=== PATIENT | male | born 1995 | race Caucasian/White ===

== ENCOUNTER 2019-11-10 22:07 | Emergency (ER) | payer SELFPAY ==
--- OUTSIDE RECORDS SUMMARY | 2019-11-10 22:10 | XMS REPORT | Continuity of Care Document ---
:1995 Author Organization [facility] t Address [facility] [place] [id number] Care Team Providers Name Role Phone Unavailable Unavailable Unavailable Problems This patient has no known problems. Allergies, Adverse Reactions, Alerts This patient has no known allergies or adverse reactions. Medications This patient has no known medications. Procedures This patient has no known procedures. Results This patient has no known results.
[2019-11-10 23:16] LABS: Urine Blood NEGATIVE (NEG); Urine Glucose NEGATIVE (NEG); Urine Protein 1+ (NEG); Urine Specific Gravity 1.025 (1.005-1.030)
[2019-11-10] MEDS ORDERED: NA CHLORIDE 0.9% 1,000 ML ONE (23:16)
[2019-11-10 23:17] LABS: Absolute Lymphocytes (CBC) 2.5 K/uL (0.7-4.9); Basophils % 0.7 % (0-1.3); Hematocrit 43.5 % (39.6-49.0); Lymphocytes % 16.3 % (15.3-44.8); MPV 9.8 fL (7.6-11.3); RBC Red Blood Cell Count 4.84 M/uL (4.33-5.43)
[2019-11-10 23:31] LABS: Barbiturates NEGATIVE (NEGATIVE); Benzodiazepines NEGATIVE (NEGATIVE); Cocaine NEGATIVE (NEGATIVE); METHAMPHETAM NEGATIVE (NEGATIVE); Methadone NEGATIVE (NEGATIVE); Opiates NEGATIVE (NEGATIVE); Phencyclidine NEGATIVE (NEGATIVE); THC Cannibis POSITIVE (NEGATIVE)
[2019-11-10 23:38] LABS: Protime INR 1.05
[2019-11-10 23:39] LABS: ALT/SGPT 27 U/L (12-78); AST/SGOT 18 U/L (15-37); Albumin 3.9 g/dL (3.4-5.0); Alkaline Phosphatase 107 U/L (45-117); BUN Blood Urea Nitrogen 12 mg/dL (7-18); Bicarbonate 26 mmol/L (21-32); Bilirubin Direct < 0.1 mg/dL (0-0.2); Bilirubin Total 0.3 mg/dL (0.2-1.0); Glucose Level 85 mg/dL (74-106); Potassium 3.5 mmol/L (3.5-5.1); Protein, Total 8.5 g/dL (6.4-8.2); Sodium Level 140 mmol/L (136-145)
--- NOTE | 2019-11-11 00:55 | ER ---
Nurse's Notes [facility] Name: Lobo Olson Age: 24 yrs Sex: Male : 1995 Arrival Date: 11/10/2019 Time: 22:08 Bed 19 Private MD: Diagnosis: Poisoning by 4-Aminophenol derivatives, undetermined Presentation: 11/09 22:24 Chief complaint: Patient states: I took tylenol 500mg tablet 7-10 tablet and rr5 co-amoxiclav 3 tablet around 1-2pm today. start feeling bad after an hour later having abdominal cramps. I bought charcoal pill took five of them then I vomited took another pill. denies commits suicide or hurting other. I took the tylenol because my head is hurting and for the antibiotic because I have spider bites just to prevent infection. Coronavirus screen: Client denies travel out of the [place] in the last 14 days. At this time, the client does not indicate any symptoms associated with coronavirus-19. Ebola Screen: Patient negative for fever greater than or equal to 101.5 degrees Fahrenheit, and additional compatible Ebola Virus Disease symptoms Patient denies exposure to infectious person. Patient denies travel to an Ebola-affected area in the 21 days before illness onset. Initial Sepsis Screen: Does the patient meet any 2 criteria? No. Patient's initial sepsis screen is negative. Does the patient have a suspected source of infection? No. Patient's initial sepsis screen is negative. Risk Assessment: Do you want to hurt yourself or someone else? Patient reports no desire to harm self or others. Onset of symptoms was November 10, 2019 at 13:00. Care prior to arrival: Medication(s) given: charcoal. 22:24 Method Of Arrival: Ambulatory rr5 22:24 Acuity: DADA 3 rr5 Historical: - Allergies: 22:29 No Known Allergies; rr5 - Home Meds: 22:29 None [Active]; rr5 - PMHx: 22:29 None; rr5 - PSHx: 22:29 None; rr5 - Immunization history:: Adult Immunizations unknown. - Social history:: Smoking status: Patient reports the use of cigarette tobacco products, smokes one pack cigarettes per day. Patient uses alcohol, occasionally. Patient/guardian denies using street drugs. Screenin:30 Abuse screen: Denies threats or abuse. Denies injuries from another. Nutritional rr5 screening: No deficits noted. Tuberculosis screening: No symptoms or risk factors identified. 22:30 Fall Risk IV access (20 points). Total Zacarias Fall Scale indicates No Risk (0-24 pts). rr5 Assessment: 22:30 General: Appears in no apparent distress. comfortable, Behavior is calm, cooperative, rr5 appropriate for age. Pain: Complains of pain in right upper quadrant Pain does not radiate. Pain currently is 2 out of 10 on a pain scale. Quality of pain is described as aching, Pain began gradually, Is intermittent. Neuro: Level of Consciousness is awake, alert, obeys commands, Oriented to person, place, time, situation. Cardiovascular: Capillary refill < 3 seconds Patient's skin is warm and dry. Respiratory: Airway is patent Respiratory effort is even, unlabored, Respiratory pattern is regular, symmetrical. GI: Reports upper abdominal pain, nausea, vomiting. : No signs and/or symptoms were reported regarding the genitourinary system. EENT: No signs and/or symptoms were reported regarding the EENT system. Derm: Skin is intact, is healthy with good turgor, Skin temperature is warm. Musculoskeletal: Circulation, motion, and sensation intact. Capillary refill < 3 seconds. 23:23 Reassessment: call made to poison control Shaista Palomares she said to get Tylenol level, rr5 increase fluid intake and educate the patient he might experience diarrhea. case # [id number]. 23:59 Reassessment: spoke to [facility] control she said shaista will call me back, informed rr5 for the acetaminophen level. 11/10 00:15 Reassessment: spoke to shaista from poison control with order to do the tylenol level now rr5 and will see the result. 01:00 Reassessment: spoke to meghan from poison control with order to start the rr5 acetylcysteine IV treatment. 01:20 Reassessment: Patient appears in no apparent distress at this time. Patient is alert, rr5 oriented x 3, equal unlabored respirations, skin warm/dry/pink. patient wants to leave and does not want to stay. Explained the AMA procedure and agreed. 01:30 Reassessment: Patient appears in no apparent distress at this time. Patient is alert, rr5 oriented x 3, equal unlabored respirations, skin warm/dry/pink. ED provider spoke to patient and explained the situation still opted to go. AMA form signed. 01:30 Reassessment: Provider explaining to pt the risk of going home. Pt verbalized jb4 understanding, continues to verbalize wish to leave AMA. Explained with the provider present that symptoms could worsen into liver failure ultimately progressing to irreversible liver damage and eventually . Provider informed patient that if treatment is continued, the Acetaminophen toxicity is completely reversible, Pt states " Thank you, but I think I am fine. I will take my chances." Instructed pt to avoid alcohol and any medication containing Tylenol/ Acetaminophen. PT signed AMA form and left ED with steady gait. Vital Signs: 11/09 22:24 BP 142 / 99; Pulse 72; Resp 16; Temp 98.6; Pulse Ox 99% ; Weight 71.67 kg; Height 5 ft. rr5 9 in. (175.26 cm); Pain 2/10; 23:30 BP 133 / 89; Pulse 79; Resp 16; Pulse Ox 98% ; rr5 11/10 00:30 BP 136 / 89; Pulse 80; Resp 16; Pulse Ox 100% ; rr5 01:30 BP 125 / 75; Pulse 70; Resp 19; Pulse Ox 99% ; rr5 11/09 22:24 Body Mass Index 23.33 (71.67 kg, 175.26 cm) rr5 ED Course: 11/09 22:08 Patient arrived in ED. am2 22:11 Osmel Garcia, RN is Primary Nurse. rr5 22:29 Triage completed. rr5 22:30 Arm band placed on right wrist. rr5 22:32 Benji Montoya MD is Attending Physician. jayla 22:35 Patient has correct armband on for positive identification. Bed in low position. Call rr5 light in reach. Pulse ox on. NIBP on. 22:50 Inserted saline lock: 20 gauge in right forearm, using aseptic technique. ,using rr5 aseptic technique. inserted by [facility] Blood collected. 11/10 01:43 Milan Doshi MD is Referral Physician. jayla 01:50 No provider procedures requiring assistance completed. IV discontinued, intact, rr5 bleeding controlled, No redness/swelling at site. Pressure dressing applied. Administered Medications: 11/09 23:15 Drug: NS 0.9% 1000 ml Route: IV; Rate: 1 bolus; Site: right forearm; rr5 11/10 00:10 Follow up: Response: No adverse reaction; IV Status: Completed infusion; IV Intake: rr5 1000ml Intake: 00:10 IV: 1000ml; Total: 1000ml. rr5 Outcome: 00:54 Discharge ordered by MD. dickerson 01:50 AMA AMA form signed rr5 01:50 Condition: stable 01:50 Instructed on the need for admit. 01:59 Patient left the ED. rr5 Signatures: Benji Montoya MD MD cha Bryson, James, RN RN jb4 Farrah Castillo am2 Osmel Garcia, RN RN rr5 Corrections: (The following items were deleted from the chart) 11/09 23:55 23:23 Reassessment: call made to poison control Shaista Palomares she said to get Tylenol rr5 level, increase fluid intake and educate the patient he might experience diarrhea. rr5
--- NOTE | 2019-11-11 00:55 | EDPHYS ---
Physician Documentation [facility] Name: Lobo Olson Age: 24 yrs Sex: Male : 1995 Arrival Date: 11/10/2019 Time: 22:08 Bed 19 Private MD: ED Physician Benji Montoya HPI: 11/09 22:58 This 24 yrs old Male presents to ER via Ambulatory with complaints of jayla ingestion of tylenol/amoxicillin. 22:58 not suicidal , took 7 x 500mg at 1 pm. Onset: The symptoms/episode began/occurred 10 jayla hour(s) ago. Severity of symptoms: At their worst the symptoms were very mild in the emergency department the symptoms are unchanged. The patient has not experienced similar symptoms in the past. Historical: - Allergies: 22:29 No Known Allergies; rr5 - Home Meds: 22:29 None [Active]; rr5 - PMHx: 22:29 None; rr5 - PSHx: 22:29 None; rr5 - Immunization history:: Adult Immunizations unknown. - Social history:: Smoking status: Patient reports the use of cigarette tobacco products, smokes one pack cigarettes per day. Patient uses alcohol, occasionally. Patient/guardian denies using street drugs. ROS: 22:59 Constitutional: Negative for fever, chills, and weight loss, Eyes: Negative for injury, jayla pain, redness, and discharge, ENT: Negative for injury, pain, and discharge, Neck: Negative for injury, pain, and swelling, Cardiovascular: Negative for chest pain, palpitations, and edema, Respiratory: Negative for shortness of breath, cough, wheezing, and pleuritic chest pain, Back: Negative for injury and pain, : Negative for injury, bleeding, discharge, and swelling, MS/Extremity: Negative for injury and deformity, Skin: Negative for injury, rash, and discoloration, Neuro: Negative for headache, weakness, numbness, tingling, and seizure, Psych: Negative for depression, anxiety, suicide ideation, homicidal ideation, and hallucinations, Allergy/Immunology: Negative for hives, rash, and allergies, Endocrine: Negative for neck swelling, polydipsia, polyuria, polyphagia, and marked weight changes, Hematologic/Lymphatic: Negative for swollen nodes, abnormal bleeding, and unusual bruising. 22:59 Abdomen/GI: Positive for nausea and vomiting. Exam: 22:59 Constitutional: This is a well developed, well nourished patient who is awake, alert, jayla and in no acute distress. Head/Face: Normocephalic, atraumatic. Eyes: Pupils equal round and reactive to light, extra-ocular motions intact. Lids and lashes normal. Conjunctiva and sclera are non-icteric and not injected. Cornea within normal limits. Periorbital areas with no swelling, redness, or edema. ENT: Nares patent. No nasal discharge, no septal abnormalities noted. Tympanic membranes are normal and external auditory canals are clear. Oropharynx with no redness, swelling, or masses, exudates, or evidence of obstruction, uvula midline. Mucous membranes moist. Neck: Trachea midline, no thyromegaly or masses palpated, and no cervical lymphadenopathy. Supple, full range of motion without nuchal rigidity, or vertebral point tenderness. No Meningismus. Chest/axilla: Normal chest wall appearance and motion. Nontender with no deformity. No lesions are appreciated. Cardiovascular: Regular rate and rhythm with a normal S1 and S2. No gallops, murmurs, or rubs. Normal PMI, no JVD. No pulse deficits. Respiratory: Lungs have equal breath sounds bilaterally, clear to auscultation and percussion. No rales, rhonchi or wheezes noted. No increased work of breathing, no retractions or nasal flaring. Back: No spinal tenderness. No costovertebral tenderness. Full range of motion. Male : Normal genitalia with no discharge or lesions. Skin: Warm, dry with normal turgor. Normal color with no rashes, no lesions, and no evidence of cellulitis. MS/ Extremity: Pulses equal, no cyanosis. Neurovascular intact. Full, normal range of motion. Neuro: Awake and alert, GCS 15, oriented to person, place, time, and situation. Cranial nerves II-XII grossly intact. Motor strength 5/5 in all extremities. Sensory grossly intact. Cerebellar exam normal. Normal gait. Psych: Awake, alert, with orientation to person, place and time. Behavior, mood, and affect are within normal limits. 22:59 Abdomen/GI: Inspection: abdomen appears normal. 23:20 ECG was reviewed by the Attending Physician. [facility] Vital Signs: 22:24 BP 142 / 99; Pulse 72; Resp 16; Temp 98.6; Pulse Ox 99% ; Weight 71.67 kg; Height 5 ft. rr5 9 in. (175.26 cm); Pain 2/10; 23:30 BP 133 / 89; Pulse 79; Resp 16; Pulse Ox 98% ; rr5 11/10 00:30 BP 136 / 89; Pulse 80; Resp 16; Pulse Ox 100% ; rr5 01:30 BP 125 / 75; Pulse 70; Resp 19; Pulse Ox 99% ; rr5 11/09 22:24 Body Mass Index 23.33 (71.67 kg, 175.26 cm) rr5 MDM: 11/09 22:32 Patient medically screened. [facility] 23:00 Differential diagnosis: Nonspecific abd pain, gastritis, viral gastroenteritis, jayla gastroenteritis. Data reviewed: vital signs, nurses notes, lab test result(s), EKG. 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 rate is 72 beats/min, rhythm is regular, Pulse oximetry: on room air is 99 %. Test interpretation: by ED physician or midlevel provider: ECG. 11/10 01:46 ED course: discussed at length about tylenol toxicity, pt refuses to stay despite [facility] findings of acute toxicity, still wants to sign out, will take his chances. 11/09 22:33 Order name: Acetaminophen; Complete Time: 23:44 [facility] 11/09 22:33 Order name: Basic Metabolic Panel; Complete Time: 23:44 [facility] 11/09 22:33 Order name: CBC with Diff; Complete Time: 23:28 [facility] 11/09 22:33 Order name: ETOH Level; Complete Time: 23:44 [facility] 11/09 22:33 Order name: Hepatic Function; Complete Time: 23:44 [facility] 11/09 22:33 Order name: PT-INR; Complete Time: 23:44 [facility] 11/09 22:33 Order name: Ptt, Activated; Complete Time: 23:44 [facility] 11/09 22:33 Order name: Salicylate; Complete Time: 23:44 [facility] 11/09 22:33 Order name: Urine Drug Screen; Complete Time: 23:44 [facility] 11/09 22:33 Order name: EKG; Complete Time: 22:34 [facility] 11/09 22:33 Order name: EKG - Nurse/Tech; Complete Time: 23:22 [facility] 11/09 23:10 Order name: Urine Dipstick--Ancillary (enter results); Complete Time: 23:22 2 11/09 23:46 Order name: Tylenol Level: at 1 am; Complete Time: 00:56 [facility] 11/09 22:33 Order name: IV Saline Lock; Complete Time: 23:22 [facility] 11/09 22:33 Order name: Labs collected and sent; Complete Time: 23:22 [facility] 11/09 22:33 Order name: Urine Dipstick-Ancillary (obtain specimen); Complete Time: 23:22 [facility] 11/09 22:33 Order name: Misc. Order: call poison control; Complete Time: 23:38 [facility] EC/27 23:20 Rate is 58 beats/min. Rhythm is regular. QRS [place] is Normal. CT interval is normal. QRS jayla interval is normal. QT interval is normal. No Q waves. T waves are Normal. No ST changes noted. Clinical impression: Sinus bradycardia. Interpreted by me. Reviewed by me. Administered Medications: 23:15 Drug: NS 0.9% 1000 ml Route: IV; Rate: 1 bolus; Site: right forearm; rr5 11/10 00:10 Follow up: Response: No adverse reaction; IV Status: Completed infusion; IV Intake: rr5 1000ml Disposition: 11/11/19 01:46 Patient has left against medical advice. Impression: Poisoning by 4-Aminophenol derivatives, undetermined. - Patients states they are going to Home. - Condition is Stable. - Discharge Instructions: Acetaminophen Overdose, Liver Failure. Follow up: Private Physician; When: Upon discharge from the Emergency Department; Reason: Recheck today's complaints, Continuance of care, Re-evaluation by your physician. Follow up: Milan Doshi MD; When: 2 - 3 days; Reason: Recheck today's complaints, Re-evaluation by your physician. - Problem is new. - Symptoms have improved. Signatures: Dispatcher [employer] EDMS Benji Montoya MD MD cha Roque, Raymond, RN RN rr5 Corrections: (The following items were deleted from the chart) 01:25 00:54 11/11/2019 00:54 Discharged to Home. Impression: Vomiting - non toxic tylenol jayla ingestion, not suicidal. Condition is Stable. Discharge Instructions: Nausea and Vomiting, Adult, Nausea and Vomiting, Adult, [id number]. Prescriptions for Zofran 4 mg Oral Tablet - take 1 tablet by ORAL route every 12 hours As needed; 10 tablet. and Forms are Medication Reconciliation Form, Thank You Letter, Antibiotic Education, Prescription Opioid Use. Follow up: Private Physician; When: 2 - 3 days; Reason: Recheck today's complaints, Continuance of care, Re-evaluation by your physician. Problem is new. Symptoms have improved. jayla 01:48 11/09 23:00 Counseling: I had a detailed discussion with the patient and/or guardian jayla regarding: the historical points, exam findings, and any diagnostic results supporting the discharge/admit diagnosis, lab results, the need for outpatient follow up, for definitive care, a family practitioner, jayla 11/10 01:59 01:46 11/11/2019 01:46 Patients has left against medical advice. Impression: Poisoning rr5 by 4-Aminophenol derivatives, undetermined. Patient states they are going to Home. Condition is Stable. Prescriptions for Zofran 4 mg Oral Tablet - take 1 tablet by ORAL route every 12 hours As needed; 10 tabletFollow up: Private Physician; When: Upon discharge from the Emergency Department; Reason: Recheck today's complaints, Continuance of care, Re-evaluation by your physician. Follow up: Milan Doshi; When: 2 - 3 days; Reason: Recheck today's complaints, Re-evaluation by your physician. Problem is new. Symptoms have improved. jayla
--- NOTE | 2019-11-12 05:49 | EKG ---
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
[2019-11-15 08:47] VITALS: TEMP 98
[2019-11-15 08:53] VITALS: BP 125/75; O2SAT 99
== END 2019-11-11 01:59 | disposition left against medical advice (07) ==
LOC: ER 22:07
DX: T39.1X1A Poisoning by 4-Aminophenol derivatives, accidental (unintentional), initial encounter (principal); T36.0X1A Poisoning by penicillins, accidental (unintentional), initial encounter; F17.210 Nicotine dependence, cigarettes, uncomplicated
CPT/HCPCS: 36415; 80048; 80076; 80307; 80320; 80329; 81003; 85025; 85610; 85730; 93005; 96360; 99284; J7030